=== PATIENT | female | born 1950 | race Caucasian/White ===

== ENCOUNTER 2016-11-12 10:48 | Emergency (ER) | payer MEDICARE, BC ==
[2016-11-12 11:25] VITALS: BP 148/77
--- NOTE | 2016-11-12 11:59 | UC ---
Complaint Female HPI - HPI Summary HPI Summary: Pain and burning with urination for 1 day no fevers, chills nausea or back pain - History Of Current Complaint Chief Complaint: UCGU Stated Complaint: UTI Time Seen by Provider: 11/12/16 11:54 Hx Obtained From: Patient ?: No Onset/Duration: Sudden Onset, Lasting Days - 1, Still Present Timing: Constant Severity Initially: Mild Severity Currently: Mild Pain Intensity: 4 Pain Scale Used: 0-10 Numeric Character: Burning Aggravating Factor(s): Urination Alleviating Factor(s): Nothing Associated Signs And Symptoms: Positive: Negative - Allergies/Home Medications Allergies/Adverse Reactions: Allergies Allergy/AdvReac Type Severity Reaction Status Date / Time ENVIRONMENTAL Allergy Wheezing Uncoded 01/22/16 17:48 PMH/Surg Hx/FS Hx/Imm Hx Previously Healthy: No Endocrine History Of: Reports: Thyroid Disease - [facility] Respiratory History Of: Reports: Asthma - ROUTINE MEDICATION FOR GI/ History Of: Reports: Kidney Stones - A CHILD - Surgical History Surgical History: Yes Surgery Procedure, Year, and Place: 2011 RIGHT SHOULDER ARTHROSCOPY WITH REPAIR OF ROTATOR CUFF, [facility] [place]. 3 C-SECTIONS, [place], [place] (2), [place], [place](1). 2014 LEFT CATARACT EXTRACTION WITH IOL IMPLANT, [facility] [place] - Family History Known Family History: Positive: Hypertension - Social History Occupation: Employed Part-time Lives: With Family Alcohol Use: Occasionally Substance Use Type: None Smoking Status (MU): Never Smoked Tobacco Amount Used/How Often: 1 1/2 PPD X 15 YEARS Length of Time of Smoking/Using Tobacco: 15 YEARS Have You Smoked in the Last Year: No When Did the Patient Quit Smoking/Using Tobacco: 1984 Review of Systems Constitutional: Negative Skin: Negative Eyes: Negative ENT: Negative Respiratory: Negative Cardiovascular: Negative Gastrointestinal: Negative Genitourinary: Dysuria, Frequency, Urgency Motor: Negative Neurovascular: Negative Musculoskeletal: Negative Neurological: Negative Psychological: Negative All Other Systems Reviewed And Are Negative: Yes Physical Exam Triage Information Reviewed: Yes Appearance: Well-Appearing, No Pain Distress, Well-Nourished Vital Signs: Initial Vital Signs Temp 97.9 F 11/12/16 11:21 Pulse 59 11/12/16 11:21 Resp 18 11/12/16 11:21 BP 148/77 11/12/16 11:21 Pulse Ox 99 11/12/16 11:21 Vital Signs Reviewed: Yes Eye Exam: Normal Eyes: Positive: Conjunctiva Clear ENT Exam: Normal ENT: Positive: Normal ENT inspection, Hearing grossly normal. Negative: Nasal congestion, Nasal drainage, Trismus, Muffled/hoarse voice Dental Exam: Normal Neck exam: Normal Neck: Positive: Supple, Nontender, No Lymphadenopathy Respiratory Exam: Normal Respiratory: Positive: Chest non-tender, Lungs clear, Normal breath sounds, No respiratory distress, No accessory muscle use Cardiovascular Exam: Normal Cardiovascular: Positive: RRR, No Murmur, Pulses Normal, Brisk Capillary Refill Abdominal Exam: Normal Abdomen Description: Positive: Nontender, No Organomegaly, Soft Bowel Sounds: Positive: Present Musculoskeletal Exam: Normal Musculoskeletal: Positive: Strength Intact, ROM Intact, No Edema Neurological Exam: Normal Neurological: Positive: Alert, Muscle Tone Normal Psychological Exam: Normal Skin Exam: Normal Diagnostics - Laboratory Diagnostic Studies Completed/Ordered: urine (+) for leukocyts and blood Complaint Female Dx - Course Course Of Treatment: macrobid, pyridium, follow blood pressure in 1-2 weeks with pcp - Differential Dx/Diagnosis Differential Diagnosis/HQI/PQRI: Renal Colic, Ureteral Stone, Urinary Tract Infection Provider Diagnoses: Uti, High Blood pressure with diagnosis of hypertension Discharge - Discharge Plan Condition: Stable Disposition: HOME Prescriptions: Nitrofurantoin Monohyd Macro [Macrobid] 100 mg PO BID #20 cap Phenazopyridine TAB* [Pyridium 100 mg TAB*] 100 mg PO TID #6 tab Patient Education Materials: Phenazopyridine (By mouth), Nitrofurantoin Combination (By mouth), Urinary Tract Infection in Women (ED), DASH Eating Plan (ED), Hypertension (ED) Referrals: Radha Kenney MD [Primary Care Provider] - 2 Weeks
== END 2016-11-12 12:14 | disposition home or self-care (01) ==
LOC: UCEAST 10:48
DX: N39.0 Urinary tract infection, site not specified (principal); E06.3 Autoimmune thyroiditis; I10 Essential (primary) hypertension; J45.909 Unspecified asthma, uncomplicated; Z87.442 Personal history of urinary calculi; Z87.891 Personal history of nicotine dependence
CPT/HCPCS: 81003; 87077; 87086; 99212; G0463